=== PATIENT | female | born 1950 | race Caucasian/White ===

== ENCOUNTER 2023-06-05 16:52 | Emergency (ER) | payer MEDICARE, OTHER, SELFPAY ==
[2023-06-05 16:59] VITALS: BP 184/90
--- NOTE | 2023-06-05 18:15 | ED.GENMED ---
History of Present Illness
General
Chief Complaint: Nose Bleed
Source: patient and spouse
Exam Limitations: none
Time Seen by Provider: 06/05/23 17:38
Nursing documentation reviewed up to this point in time: agreed with
Travel History
Have you had any contact with someone who has COVID-19?: No
Do you have any symptoms of coronavirus? Fever > 100 degrees, chills, cough, shortness of breath, sore throat, loss of taste or smell, muscle aches, or headache?: No
History of Present Illness
History of Present Illness:
73-year-old female with past medical history of Parkinson's presenting to the emergency department today with concerns of bleeding from the right nostril starting earlier today difficult to control at home prompting her to come to the emergency
department. She denies using any blood thinners or significant trauma to the area otherwise feels well no chest pain shortness of breath or lightheadedness.
Review of Systems
Review of Systems
Allergies reviewed?: Yes
All Other Systems: ROS reviewed and negative except as documented in HPI and ROS
Phy Exam
Physical Exam
Physical Exam:
GENERAL: Alert , in no apparent distress
EYE: pupils equal and reactive
NECK: Supple, no significant adenopathy.
ENT: Steady bleed from the right nostril at the nasal septum o/p clr, mmm.
CARDIAC: Regular rate and rhythm .
LUNGS: Clear breath sounds bilaterally, no acute respiratory distress, no wheezes/rales/rhonchi
ABDOMEN: Soft, without focal tenderness, no r/g, no cvat
NEUROLOGICAL: Alert and oriented, no focal neuro deficits
SKIN: Warm and dry, skin intact.
MUSCULOSKELETAL: No edema, well perfused.
PSYCH: Normal and appropriate interaction.
Course
Vital Signs
Initial and Last Documented VS:
Initial Vital Signs
Temp Pulse Resp BP Pulse Ox
98.2 F 77 20 184/90 99
06/05/23 16:59 06/05/23 16:59 06/05/23 16:59 06/05/23 16:59 06/05/23 16:59
Last Documented Vital Signs
Temp Pulse Resp BP Pulse Ox
98.2 F 77 20 184/90 99
06/05/23 16:59 06/05/23 16:59 06/05/23 16:59 06/05/23 16:59 06/05/23 16:59
Procedures
Nosebleed
Drug treatment: Lidocaine and Epinephrine
Treatment: local pressure applied and other (anterior balloon packing)
Post treatment bleeding: none- good control
MDM/Problems Addressed
MDM/Problems Addressed:
73-year-old female presenting to the emergency department today with concerns of bleeding from the right nostril. Patient unable to control this at home with pressure. Here she was assessed and found to have bleeding from the anterior aspect of
the nasal septum on the right side. No bleeding to the left side. Appears consistent with anterior nasal bleed. Initial lidocaine and epinephrine was placed in the nose. This was reassessed after half an hour. Patient had ongoing bleeding from
the same site. At this point it was decided to apply anterior packing. Patient tolerated well will follow closely with ENT ENT was contacted prior to patient being discharged and will follow-up in 3 days with their office. Return precautions
given.
*Critical Care Note
Total Time (30-74mins, 75-104mins- exclusive of procedures): Not Applicable
ED Attending Note
-
Portions of this chart may have been created with voice recognition software.� Occasional wrong word or��sound alike� substitutions may have occurred due to the inherent limitations of voice recognition software.
Discharge Plan
Departure
Patient Disposition: Home (Routine Discharge)
Date of Disposition: 06/05/23
Time of Disposition: 18:47
Patient with high blood pressure during this ER visit?: No
Condition: Good
Covid-19: Not Applicable
Discharge Problem:
Acute anterior epistaxis
Instructions: Nosebleeds (DC)
Referrals:
Trenton Polo MD [Active] - Follow up in 2-[address]
Rd Black MD [Family Provider] -
Activity Restrictions/Additional Instructions:
You came to the emergency department today with concerns of nosebleed. This was treated with nasal packing. Please leave this in place until follow-up with ENT in 3 days. Return to the emergency department for any worsening, new or concerning
symptoms.
Interventions
Interventions:
*Risk Screen - Suicide Last Done: 06/05/23 16:59
*General Assessment Last Done: 06/05/23 16:59
*Neglect/Abuse Screening Last Done: 06/05/23 16:59
ED- Fall Risk Assessment Last Done: 06/05/23 17:56
*ED COVID-19 Vaccine History Last Done: 06/05/23 17:56
ED-EENT Assessment Last Done: 06/05/23 17:56
== END 2023-06-05 19:20 | disposition home or self-care (01) ==
LOC: EMR 16:52
PROVIDERS: EMERGENCY PHYSICIAN Emergency Medicine; FAMILY PHYSICIAN Family Medicine
DX: R04.0 Epistaxis (principal); G20.A1 Parkinson's disease without dyskinesia, without mention of fluctuations
CPT/HCPCS: 99282; 30901

== ENCOUNTER → 2023-07-21 09:19 | Outpatient (REF) | payer OTHER, MEDICARE, SELFPAY | LOC: RAD 09:19 | PROVIDERS: ATTENDING PHYSICIAN Family Medicine | DX: M54.50 Low back pain, unspecified (principal) | CPT/HCPCS: 72110 ==

== ENCOUNTER → 2023-11-16 10:35 | Outpatient (REF) | payer MEDICARE, OTHER, SELFPAY ==
[2023-11-16 11:29] LABS: % Basophils 0.9 % (0-2); % Eosinophils 2.1 % (0-6); % Immature Granulocytes 0.2 % (0-0.5); % Lymphocytes 23.6 % (20.5-51.1); % Monocytes 7.9 % (1.7-9.3); % Neutrophils 65.3 % (42.2-75.2); Absolute Basophils 0.1 10^3/uL (0-0.2); Absolute Eosinophils 0.1 10^3/uL (0-0.7); Absolute Lymphocytes 1.4 10^3/uL (1.2-3.4); Absolute Monocytes 0.5 10^3/uL (0.1-0.6); Absolute Neutrophils 3.8 10^3/uL (1.4-6.5); Hematocrit 40.1 % (37.0-47.0); Hemoglobin 12.6 g/dL (12.0-16.0); Mean Corp Hgb Conc. 31.4 g/dL (33.0-37.0); Mean Corpuscular Hgb 26.6 pg (27.0-31.0); Mean Corpuscular Volume 84.8 fL (81.0-99.0); Mean Platelet Volume 12.6 fL (7.4-10.4); Nucleated Red Blood Cells % 0 %; Platelet Count 245 10^3/uL (130-400); Red Blood Cell Count 4.73 10^6/uL (4.20-5.40); Red Cell Dist. Width 14.4 % (11.5-14.5); White Blood Cell Count 5.8 10^3/uL (4.8-10.8)
[2023-11-16 11:37] LABS: ALT (SGPT) < 10 U/L (0-35); AST (SGOT) 19 U/L (14-36); Albumin 4.4 g/dl (3.5-5.0); Alkaline Phosphatase 92 U/L (38-126); Blood Urea Nitrogen 29 mg/dl (7-17); Calcium 10.5 mg/dl (8.4-10.2); Carbon Dioxide 29 mmol/L (22-30); Chloride 106 mmol/L (98-107); Glucose 105 mg/dl (70-99); HDL Cholesterol 95 mg/dl; LDL Cholesterol, Calculated 122 mg/dl; Potassium 4.5 mmol/L (3.5-5.1); Sodium 139 mmol/L (135-145); Total Bilirubin 0.6 mg/dl (0.2-1.3); Total Cholesterol 233 mg/dl (50-199); Triglyceride 81 mg/dl (10-149); Very Low Density Lipoprotein 16 mg/dl (0-30); eGFR 52.73
[2023-11-16 13:05] LABS: Glycohemoglobin (HgbA1c) 6.2 % (4.0-5.6)
== END ==
LOC: REG 10:35
PROVIDERS: ATTENDING PHYSICIAN Family Medicine
DX: G20.A1 Parkinson's disease without dyskinesia, without mention of fluctuations (principal); E78.5 Hyperlipidemia, unspecified; R73.01 Impaired fasting glucose; I10 Essential (primary) hypertension
CPT/HCPCS: 36415; 80053; 80061; 83036; 85025

== ENCOUNTER → 2023-11-20 13:28 | Outpatient (REF) | payer MEDICARE, OTHER, SELFPAY | LOC: HWRAD 13:28 | PROVIDERS: ATTENDING PHYSICIAN Family Medicine | DX: Z13.820 Encounter for screening for osteoporosis (principal); Z78.0 Asymptomatic menopausal state | CPT/HCPCS: 77080 ==

== ENCOUNTER → 2024-02-14 14:01 | Outpatient (REF) | payer MEDICARE, OTHER, SELFPAY | LOC: HWWDC 14:01 | PROVIDERS: ATTENDING PHYSICIAN Family Medicine; REFERRING PHYSICIAN Obstetrics & Gynecology Gynecology | DX: Z12.31 Encounter for screening mammogram for malignant neoplasm of breast (principal) | CPT/HCPCS: 77063; 77067 ==

== ENCOUNTER → 2024-06-06 10:24 | Outpatient (REF) | payer MEDICARE, OTHER, SELFPAY | LOC: RAD 10:24 | PROVIDERS: ATTENDING PHYSICIAN Internal Medicine | DX: M25.511 Pain in right shoulder (principal); M25.512 Pain in left shoulder | CPT/HCPCS: 73030 ==

== ENCOUNTER 2024-08-01 12:58 | Outpatient (RCR) | payer MEDICARE, OTHER, SELFPAY | END 2024-08-01 23:59 | disposition home or self-care (01) | LOC: RPT 12:58 | PROVIDERS: ATTENDING PHYSICIAN Psychiatry & Neurology Neurology; FAMILY PHYSICIAN Internal Medicine | DX: G20.C Parkinsonism, unspecified (principal); R29.3 Abnormal posture; Z73.6 Limitation of activities due to disability; M54.50 Low back pain, unspecified; R26.89 Other abnormalities of gait and mobility | CPT/HCPCS: 97110; 97112; 97163; 97530 ==

== ENCOUNTER 2024-09-04 10:03 | Outpatient (RCR) | payer MEDICARE, OTHER, SELFPAY | END 2024-09-04 23:59 | disposition home or self-care (01) | LOC: RPT 10:03 | PROVIDERS: ATTENDING PHYSICIAN Psychiatry & Neurology Neurology; FAMILY PHYSICIAN Internal Medicine | DX: G20.C Parkinsonism, unspecified (principal); R29.3 Abnormal posture; Z73.6 Limitation of activities due to disability; M54.50 Low back pain, unspecified; R26.89 Other abnormalities of gait and mobility | CPT/HCPCS: 97110; 97112; 97116; 97140; 97530 ==

== ENCOUNTER 2024-09-26 16:11 | Outpatient (RCR) | payer MEDICARE, OTHER, SELFPAY | END 2024-09-27 07:08 | disposition home or self-care (01) | LOC: RPT 16:11 | PROVIDERS: ATTENDING PHYSICIAN Psychiatry & Neurology Neurology; FAMILY PHYSICIAN Internal Medicine | DX: G20.C Parkinsonism, unspecified (principal); R29.3 Abnormal posture; Z73.6 Limitation of activities due to disability; M54.50 Low back pain, unspecified; R26.89 Other abnormalities of gait and mobility | CPT/HCPCS: 97110; 97112; 97116; 97530 ==

== ENCOUNTER → 2024-12-19 09:57 | Outpatient (REF) | payer MEDICARE, OTHER, SELFPAY ==
[2024-12-19 11:41] LABS: Hematocrit 40.0 % (37.0-47.0); Hemoglobin 12.7 g/dL (12.0-16.0); Mean Corp Hgb Conc. 31.8 g/dL (33.0-37.0); Mean Corpuscular Volume 86.8 fL (81.0-99.0); Nucleated Red Blood Cells % 0 %; Platelet Count 195 10^3/uL (130-400); Red Cell Dist. Width 13.6 % (11.5-14.5)
[2024-12-19 12:11] LABS: ALT (SGPT) < 10 U/L (0-35); AST (SGOT) 14 U/L (14-36); Albumin 4.2 g/dl (3.5-5.0); Alkaline Phosphatase 80 U/L (38-126); Blood Urea Nitrogen 25 mg/dl (7-17); Calcium 10.2 mg/dl (8.4-10.2); Carbon Dioxide 26 mmol/L (22-30); Chloride 106 mmol/L (98-107); Glucose 97 mg/dl (70-99); HDL Cholesterol 68 mg/dl; LDL Cholesterol, Calculated 113 mg/dl; Potassium 4.5 mmol/L (3.5-5.1); Sodium 138 mmol/L (135-145); Total Protein 6.6 g/dl (6.3-8.2); Very Low Density Lipoprotein 22 mg/dl (0-30); eGFR 52.40
[2024-12-19 12:36] LABS: TSH 2.16 uIU/ml (0.47-4.68)
[2024-12-19 16:10] LABS: Glycohemoglobin (HgbA1c) 5.9 % (4.0-5.6)
== END ==
LOC: REG 09:57
PROVIDERS: ATTENDING PHYSICIAN Internal Medicine
DX: I10 Essential (primary) hypertension (principal); R73.03 Prediabetes; E78.5 Hyperlipidemia, unspecified
CPT/HCPCS: 36415; 80053; 80061; 83036; 84443; 85025

== ENCOUNTER 2025-03-03 07:42 | Outpatient (RCR) | payer MEDICARE, OTHER, SELFPAY | END 2025-03-03 23:59 | disposition home or self-care (01) | LOC: RPT 07:42 | PROVIDERS: ATTENDING PHYSICIAN Psychiatry & Neurology Neurology; FAMILY PHYSICIAN Internal Medicine | DX: G20.B2 Parkinson's disease with dyskinesia, with fluctuations (principal); Z73.6 Limitation of activities due to disability; M19.072 Primary osteoarthritis, left ankle and foot; M25.512 Pain in left shoulder; M25.511 Pain in right shoulder; M62.81 Muscle weakness (generalized) | CPT/HCPCS: 97110; 97112; 97140; 97162; 97530 ==

== ENCOUNTER → 2025-03-05 11:16 | Outpatient (REF) | payer MEDICARE, OTHER, SELFPAY | LOC: HWWDC 11:16 | PROVIDERS: ATTENDING PHYSICIAN Obstetrics & Gynecology Gynecology; FAMILY PHYSICIAN Internal Medicine | DX: Z12.31 Encounter for screening mammogram for malignant neoplasm of breast (principal) | CPT/HCPCS: 77063; 77067 ==

== ENCOUNTER 2025-03-19 08:33 | Outpatient (RCR) | payer MEDICARE, OTHER, SELFPAY | END 2025-03-20 06:54 | disposition home or self-care (01) | LOC: RPT 08:33 | PROVIDERS: ATTENDING PHYSICIAN Psychiatry & Neurology Neurology; FAMILY PHYSICIAN Internal Medicine | DX: G20.B2 Parkinson's disease with dyskinesia, with fluctuations (principal); Z73.6 Limitation of activities due to disability; M19.072 Primary osteoarthritis, left ankle and foot; M25.512 Pain in left shoulder; M25.511 Pain in right shoulder; M62.81 Muscle weakness (generalized) | CPT/HCPCS: 97110; 97112; 97140 ==